=== PATIENT | female | born 1940 | race Caucasian/White ===

== ENCOUNTER 2022-04-18 17:35 | Outpatient (CLI) | payer MEDICARE, BC, SELFPAY ==
--- NOTE | ~2022-04-18 | XR_ITS ---
XR chest 2V DATE: 04/18/2022 17:55 INDICATION: History of spots on lungs TECHNIQUE: PA and lateral views COMPARISON: 07/17/2017 two-view chest FINDINGS: There is interval asymmetric increased density in the right apical area compared to the lef t. CT thorax examination is recommended. The lungs are moderately hyperinflated evidence of old pulmonary granulomatous disease. No active infiltrate or consolidation, pleural effusion or pulmonary vascular congestion or pneumotho rax is detected. Normal heart size. No hilar or mediastinal enlargement. Moderate elevation of the right diaphragm, mildly increased since 07/17/2017. Thoracic and lumbar scoliosis and degenerative change. IMPRESSION: Asymmetric increased density in the right apical area since 07/17/2017; CT thorax examinati on is recommended for further evaluation Old pulmonary granulomatous disease Osteopenia Scoliosis and degenerative change of the thoracic and lumbar spine Reviewed, dictated and finalized at location B. [employer] CONTR[employer] REPRESENTATIVE IMPRESSION: Asymmetric increased density in the right apical area since 8; CT thorax examination is recommended for further evaluation Old pulmonary granulomatous disease Osteopenia Scoliosis and degenerative change of the thoracic and lumbar spine
== END 2022-04-18 17:36 | disposition home or self-care (01) ==
LOC: ANHIMG 17:41
DX: N13.30 Unspecified hydronephrosis (principal); J47.9 Bronchiectasis, uncomplicated; M85.88 Other specified disorders of bone density and structure, other site; M41.9 Scoliosis, unspecified
CPT/HCPCS: 71046

== ENCOUNTER 2022-10-23 00:59 | Inpatient (IN) | payer MEDICARE, BC, SELFPAY ==
[2022-10-23] VITALS (25 sets, daily range): BP systolic 114–217; BP diastolic 44–61; PULSE 37–83; RESP 12–27; TEMP 36–36.9; O2SAT 93–100; BMI 18.1
--- NOTE | ~2022-10-23 | XR_ITS ---
XR chest 1V portable 10/23/2022 03:14 Indication: Weakness. Dyspnea. Procedure: AP portable chest Comparison: Comparison to multiple prior studies sequentially, with oldest reviewed study dated 06/11. Findings: Heart size normal. Diffuse bilateral interstitial infiltrates have developed, compatible wi th edema. No pleural effusion or pneumothorax. No acute osseous abnormality. Impression: 1: Mild interstitial edema. Reviewed, dictated and finalized at location A. Impression: 1: Mild interstitial edema.
--- NOTE | ~2022-10-23 | XR_ITS ---
EXAMINATION: XR chest 1V portable INDICATION: Pacemaker insertion TECHNIQUE: Portable AP chest at 1149 hours COMPARISON: 10/23/2022 FINDINGS: An electronic device projects over the left heart. There is a small left pleural effusion. There is no pneumothorax. A mild diffuse interstitial pattern persists without significant change. Th e cardiomediastinal silhouette is stable. IMPRESSION: 1. Electronic device projecting over the left heart. 2. Mild pulmonary edema without significant change. Reviewed, dictated and finalized at location A.
--- NOTE | ~2022-10-23 | XR_ITS ---
EXAMINATION: XR chest 2V DATE: 10/25/2022 11:44 INDICATION: Pacemaker insertion TECHNIQUE: AP and lateral views of the chest are obtained. COMPARISON: 10/24/2022 FINDINGS: A mild diffuse interstitial pattern persists but has improved. An electronic device project s over the left heart. There is a small left pleural effusion. No pneumothorax is identified. The car diomediastinal silhouette is stable. There is moderate thoracic spondylosis. IMPRESSION: 1. Mild pulmonary edema with interval improvement. 2. Small left pleural effusion. Reviewed, dictated and finalized at location A.
--- NOTE | 2022-10-23 01:22 | ECG_ITS ---
Measurements Intervals [place] Rate: 121 P: ID: 0 QRS: 105 QRSD: 139 T: 0 QT: 284 QTc: 404 Interpretive Statements COMPLETE HEART BLOCK INTRAVENTRICULAR CONDUCTION DELAY [130+ ms QRS DURATION] NONSPECIFIC ST AND t-WAVE ABNORMALITY NO PREVIOUS ECG AVAILABLE FOR COMPARISON Electronically Signed On 10-23-2022 8:40:59 CDT by Vonda Ritter M.D.
[2022-10-23 02:12] LABS: Basophils Percent Auto 0.5 % (0.2-1.2); Eosinophils Absolute Auto 0.1 K/mm3 (0-0.3); Eosinophils Percent Auto 0.9 % (0-4.4); Hematocrit 34.1 % (37.0-47.0); Hemoglobin 11.1 g/dL (12.0-15.0); Immature Granulocyte Absolute 0.03 K/mm3 (0.00-0.031); Immature Granulocyte Percent A 0.4 % (0-0.5); Lymphocytes Absolute Auto 0.97 K/mm3 (0.9-3.2); Lymphocytes Percent Auto 11.4 % (18.3-44.2); Mean Corpuscular HGB Conc 32.6 g/dl (32-36); Monocytes Absolute Auto 1.1 K/mm3 (0.1-0.6); Monocytes Percent Auto 12.3 % (2.6-8.5); Neutrophils Absolute Auto 6.4 K/mm3 (1.3-6.7); Neutrophils Percent Auto 74.5 % (45.5-73.1); Platelet Count Result 309 k/mm3 (150-375); Red Blood Count 3.83 M/mm3 (4.2-5.4); Red Cell Distribution Width 13.5 % (11.5-14.5); White Blood Count 8.5 K/mm3 (4.5-10.0)
[2022-10-23 02:18] LABS: Appearance Urine Clear (Clear); Bacteria Urine None Seen /hpf; Bilirubin Urine Negative (Negative); Blood Urine Negative (Negative); Color Urine Dark Yellow (Yellow); Glucose Urine UA Negative (Negative); Ketones Urine Trace mg/dL (Negative); Leukocyte Esterase Ur Negative LEU/UL (Negative); Nitrate Urine Negative (Negative); Protein Urine 2+ mg/dL (Negative); Specific Grav Ur 1.021 (1.001-1.035); Squamous Epithelial Cell Urine None seen /hpf (Few); WBC Urine 0-5 /hpf
[2022-10-23 02:29] LABS: Alanine Aminotransferase 39 U/L (6-35); Albumin Level 3.9 g/dL (3.5-5.1); Alkaline Phosphatase 106 U/L (38-126); Anion Gap 8 mmol/L (8-16); Aspartate Amino Transferase 45 U/L (14-36); Bilirubin,Total 0.5 mg/dL (0.2-1.3); Blood Urea Nitrogen 33 mg/dL (7-17); Calcium 8.3 mg/dL (8.4-10.2); Carbon Dioxide 19 mmol/L (22-30); Chloride 102 mmol/L (98-107); Estimated Glomerular Filt Rate 33; Glucose 116 mg/dL (65-110); Magnesium 2.7 mg/dL (1.6-2.3); Potassium 4.5 mmol/L (3.4-5.0); Sodium 129 mmol/L (137-145)
[2022-10-23 02:30] LABS: Prothrombin Time 13.9 Seconds (11.1-14.7)
[2022-10-23 02:31] LABS: Lactic Acid Reflex 1.6 mmol/L (0.7-2.0); Partial Thromboplastin Time 37.6 SECONDS (22.3-36.8)
[2022-10-23 02:41] LABS: NT Pro B Type Natriuretic Pept 26600 pg/mL (19.9-100); Troponin I 0.023 ng/mL (0.000-0.034)
--- NOTE | 2022-10-23 02:53 | ED.GENADULT ---
HPI - General Adult General Chief complaint: Unspecified Stated complaint: sob Time Seen by Provider: 10/23/22 01:24 History of Present Illness HPI narrative: Patient is a 82-year-old female who presents emergency department with chief complaint of generalized weakness. Patient reports for the last 4 days she has been feeling weak and has noticed that her blood pressure has been running on the high side. Patient states she has not had really any significant chest pain reports no syncope but states she just feels exhausted. Patient decided to come into the emergency department tonight after the symptoms were not improving. Patient reports no prior history of cardiac disease does report that she has prior history of hypertension Related Data Home Medications Medication Instructions Recorded Confirmed aspirin 81 mg tablet,delayed 81 mg PO DAILY 03/18/19 03/18/19 release (Aspir-) azithromycin 250 mg tablet 03/18/19 hydralazine 25 mg tablet 25 mg PO TID 03/18/19 03/18/19 lorazepam 0.5 mg tablet 0.5 mg PO DAILY PRN Anxiety 03/18/19 03/18/19 metoprolol tartrate 100 mg tablet 100 mg PO Q12H 03/18/19 03/18/19 Allergies Allergy/AdvReac Type Severity Reaction Status Date / Time cefuroxime Allergy Mild Unknown Verified 10/23/22 01:16 amoxicillin Allergy Unknown Other Verified 10/23/22 01:16 cefdinir Allergy Unknown Other Verified 10/23/22 01:16 levofloxacin Allergy Unknown Other Verified 10/23/22 01:16 AMOXICILLIN TRIHYDRATE Allergy Unknown ?ITCHING Uncoded 10/23/22 01:16 FEET, ACHY BONES POTASSIUM CLAVULANATE Allergy Unknown ?ITCHING Uncoded 10/23/22 01:16 FEET, ACHY BONES Review of Systems Review of Systems: A 10 system review of systems was completed on the patient and is negative except for what is stated in the HPI. Nursing and ancillary documentation was reviewed. [facility] Family History Family History Father Family history of lung cancer Other Malignant neoplasm of prostate Social History Social History Smoking status: Never smoker Alcohol intake: never Exam Narrative: GENERAL: Well-appearing, well-nourished, and in no acute distress. HEAD: Normocephalic, atraumatic. EYES: PERRLA and EOMI. ENT: Nares clear, no rhinorrhea or epistaxis. Mucous membranes moist. NECK: Supple. CHEST: Clear to auscultation. No respiratory distress. HEART: Regular rate and rhythm. No murmur heard. Normal peripheral pulses. ABDOMEN: Soft, nontender, nondistended, normal active bowel sounds. EXTREMITIES: Normal range of motion. No edema. SKIN: Warm, dry, no rash. NEURO: No focal deficits. Alert and oriented x3. PSYCH: Normal mood and affect. Course Vital Signs Vital signs: Vital Signs Temperature 36.0 C L 10/23/22 01:04 Pulse Rate 42 L 10/23/22 01:04 Respiratory Rate 12 10/23/22 01:04 Blood Pressure 217/60 H 10/23/22 01:04 Pulse Oximetry 97 10/23/22 01:04 Oxygen Delivery Room Air 10/23/22 01:04 Temperature 36.0 C L 10/23/22 01:04 Pulse Rate 83 10/23/22 02:25 Respiratory Rate 20 10/23/22 01:29 Blood Pressure 213/59 H 10/23/22 01:29 Pulse Oximetry 100 10/23/22 01:29 Oxygen Delivery Room Air 10/23/22 01:04 Medical Decision Making MDM Narrative Medical decision making narrative: Differential diagnosis includes dysrhythmia, ACS, electrolyte abnormality, acute renal failure EKG shows third-degree heart block without ST elevation or ST depression Laboratory studies were obtained and the patient which showed a normal CBC with a white count of 8.5 hemoglobin 11.1 electrolytes showed a sodium of 129 potassium of 4.5 BUN of 33 and a creatinine 1.5 lactic acid was 1.6 magnesium was 2.7 liver enzymes were slightly elevated with an AST of 45 and ALT at 39 troponin is 0.023 Vital Signs Vital Signs: Vital Signs Temperatu
[2022-10-23 03:02] LABS: Add Urine Microscopic? YES
--- NOTE | 2022-10-23 04:25 | ADMGEN ---
This patient, Sulma Freitas, was admitted to Intensive Care Unit-3. Patient/family oriented to hospital policies and general routines including ID bracelet, bed and alarms, visiting hours, pain management, procedures, bathroom and other care routines, personal items, smoking policy, room service/diet, and visiting hours. Information on how to activate the Rapid Response Team has been discussed. Patient/Family are encouraged to report perceived risks to care and to ask questions if they do not understand what they are told or what they should do.
[2022-10-23 06:10] LABS: Troponin I 0.029 ng/mL (0.000-0.034)
--- NOTE | 2022-10-23 06:23 | PM.IMHP ---
H&P: HPI History of Present Illness Date/Time: 10/23/22 06:23 Chief Complaint: Shortness of breath and weakness Narrative: 82-year-old female with a past medical history of bronchiectasis, essential hypertension and depression who presented to the ER with shortness of breath and generalized weakness. The patient reports that she has been feeling overall weak for the last 4 days. She did not feel well so was checking her vitals at home. She knows that her blood pressure was running on the higher side. When she arrived to the ER her blood pressures were in the 190s to 200 systolic. Then just after midnight today she began having increased shortness of breath from baseline. She always has some shortness of breath due to history of bronchiectasis per symptoms are well controlled by using albuterol nebulizer twice a day. She has not been having any significant cough from baseline. She denies any chest pain or palpitations. She denies any lightheadedness or syncope. She has not had any recent changes in her medications. She has not had any nausea or vomiting. She does have some chronic urinary frequency but no increased urgency or dysuria. However on the day of presentation to the ER she had actually not had much urine output. When they placed a catheter in the ER the patient had produced 300 mL of urine. She had had decreased oral intake over last couple of days due to her profound weakness. She correa been having normal bowel movements without hematochezia or melena. She ambulates without assistance in his independent activities of daily living. The patient's give me permission to discuss her medical care with her daughter who is also at bedside. They both provided information with the patient providing the majority of the information. The daughter states the patient is a DNR/DNI and would not want to have aggressive intervention if she were to have cardiac arrest but in the setting of the heart block and need for probable pacemaker insertion they are willing to have the patient full code for such a procedure. Review of Systems Review of Systems: 12 systems were reviewed with pertinent positives and negatives per HPI. Except as documented in the HPI, all other systems were reviewed and are negative. 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) TIA (transient ischemic attack) Surgical History Surgical History (Updated 10/23/22 @ 06:37 by Claire Umana DO) History of lumpectomy of left breast Benign pathology History of myringotomy History of sinus surgery Status post cataract extraction of both eyes with insertion of intraocular lens Family History Family History (Updated 10/23/22 @ 06:39 by Claire Umana DO) Father Lung cancer Mother Blindness Sibling Malignant neoplasm of prostate Social History Social History (Updated 10/23/22 @ 07:05 by Claire Umana DO) Social History: Code status: DNR/DNI Healthcare power of disability attorney: Smoking status: Never smoker Alcohol intake: never Lack of Transportation: No Lack of Food: Never True Current Housing: I Have Housing Concerned About Future Housing: No Difficulty Paying Gas/Electric Bills: No Difficulty Paying for Meds: No Currently Unemployed: No Education: Decline to Answer Difficulty w/ Childcare or Family Care: No Living arrangements: with family Additional living arrangements comments: She lives with her of 60 years. Her daughter is at bedside. 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 Spiritual care concerns: No Meds Home Medications and Allergies Jac
[2022-10-23] MEDS: hydrALAZINE HCL 20 MG/ML VIAL 10 MG IV PUSH (06:54)
--- NOTE | 2022-10-23 08:27 | WPDCNINT ---
Assessment and Plan Assessment and plan (1) Third degree heart block: Code(s): I44.2 - Atrioventricular block, complete Status: Acute Assessment and Plan: Patient presented with 3-4 days of generalized weakness, shortness of breath, hypertension. In the ER was noted to be in High-degree AV dissociation/complete heart block. Hemodynamically stable -patient admitted to the ICU for close monitor -appreciate cardiology evaluation and recommendation, -patient with likely require permanent pacemaker -given patient is hemodynamic stable anti cardiology fluids as she does not require a temporary pacemaker at this time (2) Uncontrolled hypertension: Code(s): I10 - Essential (primary) hypertension Status: Acute Assessment and Plan: Continue hydralazine scheduled and p.r.n. (3) Bronchiectasis: Code(s): J47.9 - Bronchiectasis, uncomplicated Status: Acute Assessment and Plan: History of bronchiectasis, continue albuterol nebulizer Plan DVT prophylaxis: SCDs Stress ulcer prophylaxis: Not indicated Nutrition: Heart healthy diet Code Status: Full code for now Critical Care Time Spent: 47 minutes Due to a high probability of clinically significant, life threatening deterioration, the patient required my highest level of preparedness to intervene emergently and I personally spent this critical care time directly and personally managing the patient. This critical care time included obtaining a history; examining the patient; pulse oximetry; ordering and review of studies; arranging urgent treatment with development of a management plan; evaluation of patient's response to treatment; frequent reassessment; and discussions with other providers. It was exclusive of separately billable procedures and treating other patients and teaching time. Please see Assessment and Plan section and the rest of the note for further information on patient assessment and treatment This dictation may have been done utilizing a voice recognition system. Attempts have been made to correct errors. However, there may be uncorrected grammatical, spelling, and recognitions errors present. Nurse Navigator Consult Note Consult date: 10/23/22 Reason for consult: Shortness of breath, generalized weakness, hypertension, complete AV dissociation/complete blood HPI: Sulma Freitas is a 82 year old female with past medical history of bronchiectasis, essential hypertension, history of SIADH, TIA, hyponatremia, anxiety and depression presented the ED on 10/24/2019 with complains of shortness of breath, generalized weakness which has been going on for the last 4 days prior to admission. She also noted that that her blood pressures were running on the higher side. She has always had some shortness of breath at baseline due to her bronchiectasis but his shortness of breath has been worsening since the last few days and she has been having to use her in albuterol nebulizer 2 times daily. She denies any cough, fevers, chest pain or palpitations. She did not complain of any lightheadedness was syncopal episodes. Denies any nausea vomiting. Denies any alcohol, tobacco illicit drug use. In the ER patient was found to be hypertensive with systolic blood pressures in the 190s to 200s. Patient was bradycardic with complete AV dissociation/complete heart block. Due to her severe generalized weakness and just not feeling well overall her p.o. intake has also decreased over the last few days. Patient was started on hydralazine for blood pressures and transferred to the ICU for further management. 10/23/2022 chest x-ray on admission shows mild interstitial edema Patient seen and examined the ICU this morning, denies any chest pain, shortness of breath, abdominal pain, nausea, vomiting. States she has not slept well overnight and is tired. Patient is hyponatremic, with acute [place] [id number]. Patient states that she has had de
--- NOTE | 2022-10-23 08:45 | PM.CNCAR ---
Assessment and Plan Assessment and plan (1) Third degree heart block: Code(s): I44.2 - Atrioventricular block, complete Status: Acute Assessment and Plan: Pt presents complete heart block and bradycardia, due to aging conduction system; not on any beta-blockers etc.. Complete heart block is a life-threatening diseae with a high risk of morbidity and mortality. Fortunately, so far, her heart rhythm though very bradycardic appears fairly stable, underlying fairly narrow complex RBBB. No pauses. I think patient will not need a temporary pacemaker or other acute intervention today. If she deteriorates, then we can place a temporary transvenous pacemaker. Discussed and counseled patient and family; recommend pacemaker implant. Because of her slight stature, she has a higher risk of complications with a traditional dual chamber pacemaker and may be a candidate for a leadless device. --echocardiogram --pacemaker implant tomorrow (2) Acute diastolic CHF (congestive heart failure): Code(s): I50.31 - Acute diastolic (congestive) heart failure Status: Acute Assessment and Plan: Has acute diastolic chf, probably due to poor cardiac output. Not requring O2. Likely will improve w/ an improved cardiac output. --Check Echo (3) OSMAR (acute kidney injury): Code(s): N17.9 - Acute kidney failure, unspecified Status: Acute Assessment and Plan: OSMAR prob 2nd to poor cardiac output. Likely will improve. History of Present Illness History of Present Illness Consult date/time: 10/23/22 08:45 Reason For Visit: Third Degree Heart Block/Generalized Weakness Narrative: Sulma Freitas is an 82-year-old female whom I was asked to see at the request of Dr. mAe Vinson for my advice and opinion regarding her complete heart block and bradycardia, in consultation. She has a history of hypertension and hyponatremia. The patient has not been feeling well for the last few days with shortness of breath, poor appetite, and generalized weakness. Blood pressure has been running high. SShe thought her shortness of breath was due to her bronchiectasis and was using her nebulizers. In the emergency room she was found to a have a heart rate of 37-42 ppm and be in complete heart block. She also may be in mild failure heart failure. She was admitted to the ICU, and been stable overnight with a heart rate running 38-42 BPM. She has no cardiac history and is not on any beta-blockers or calcium channel blockers. An echo done in 2017 showed an ejection fraction 72% with diastolic dysfunction. Creatinine in September 2021 was 0.5. PRior to this illness, the pt was limited by neuropathy such that she doesn't get out much and is somewhat sedentary. No need for walker or cane. No CP, prior BISHOP, or edema. Review of Systems Constitutional: Constitutional: Reports fatigue, Denies fever(s), Reports lethargy and Reports weakness Comments: Got to the ICU late, didn't sleep well, sleepy today Eyes: Eyes: Reports no additional eye complaints ENT: Denies epistaxis Cardiovascular: Cardiovascular: Denies chest pain, Denies pedal edema, Denies lightheadedness and Reports dyspnea Respiratory: Respiratory: Denies chest congestion, Reports dyspnea and Reports dyspnea on exertion Gastrointestinal: Gastrointestinal: Denies abdominal pain and Denies hematochezia Comments: anorexia Genitourinary: Genitourinary: Denies hematuria Musculoskeletal: Musculoskeletal: Reports no additional musculoskeletal complaints Integumentary/Breasts: Skin/Breast: Reports system reviewed and no additional complaints, except as docu Neurologic: Reports system reviewed and no additional complaints, except as documented and Denies behavioral changes Comments: Has neuropathy w/ pain and numbess of feet. Psychiatric: Psychiatric: Denies behavioral changes [facility] Past Medical History Medical History (Updated 10/23/22 @ 09:27 b
[2022-10-23] MEDS: hydrALAZINE HCL 50 MG TABLET PO ×2 (08:57→13:13)
[2022-10-23] MEDS: ASPIRIN 81 MG ENTERIC TABLET PO (08:57)
[2022-10-23] MEDS: ALBUTEROL SULFATE NEB 2.5 MG/3 ML INH INHALATION ×2 (09:43→19:03)
[2022-10-23 10:03] LABS: Troponin I 0.033 ng/mL (0.000-0.034)
[2022-10-23] MEDS: ACETAMINOPHEN 325 MG TABLET 650 MG PO (13:20)
--- NOTE | 2022-10-23 17:58 | WPDPN ---
Progress Note: A&P Assessment and Plan (1) Third degree heart block: Code(s): I44.2 - Atrioventricular block, complete Status: Acute (2) Uncontrolled hypertension: Code(s): I10 - Essential (primary) hypertension Status: Acute Plan Patient has new onset third-degree heart block likely causing her symptoms of profound weakness. The patient also has a concomitant elevated blood pressure I think this is compensatory to count about her profound bradycardia. Cardiology has been consulted. The patient does have an elevated creatinine. It is unclear if this is acute kidney injury due to hypoperfusion versus just developing chronic kidney disease as patient's prior labs were from 2018. Chest x-ray also does demonstrates of possible pulmonary edema versus some of her chronic changes from a bronchiectasis. Again likely due to heart failure due to her bradycardia. The patient is not requiring any supplemental oxygen. The patient has been admitted as he ICU and has external pacers in place. Patient is not on any medications that could cause bradycardia. Will order echocardiogram to further evaluate patient's cardiac structure and function. Cardiology has been consulted. Patient would provide benefit from a temporary pacemaker to help with her symptoms. Will await further recommendations from Cardiology. Stock Fitter has been consulted. 40 minute spent critical care activities Due to a high probability of clinically significant, life threatening deterioration, the patient required my highest level of preparedness to intervene emergently and I personally spent this critical care time directly and personally managing the patient. This critical care time included obtaining a history; examining the patient; pulse oximetry; ordering and review of studies; arranging urgent treatment with development of a management plan; evaluation of patient's response to treatment; frequent reassessment; and discussions with other providers. It was exclusive of separately billable procedures and treating other patients and teaching time. Please see Assessment and Plan section and the rest of the note for further information on patient assessment and treatment. 09/22/2022 interval history: 82-year-old female presented emergency department with complaint of shortness of breath is found to have third-degree heart block, patient is seen by Cardiology patient remains clinically stable and recommended patient does not need temporary pacemaker however patient will have permanent pacemaker tomorrow, unfortunately patient is quite some unable to provide any review of symptom, her daughter and her is present in the go and answered all the questions Subjective Date/time seen: 10/23/22 17:58 Interval history: Shortness of breath and weakness HPI-Narrative: 82-year-old female with a past medical history of bronchiectasis, essential hypertension and depression who presented to the ER with shortness of breath and generalized weakness.? The patient reports that she has been feeling overall weak for the last 4 days.? She did not feel well so was checking her vitals at home.? She knows that her blood pressure was running on the higher side.? When she arrived to the ER her blood pressures were in the 190s to 200 systolic.? Then just after midnight today she began having increased shortness of breath from baseline.? She always has some shortness of breath due to history of bronchiectasis per symptoms are well controlled by using albuterol nebulizer twice a day.? She has not been having any significant cough from baseline.? She denies any chest pain or palpitations.? She denies any lightheadedness or syncope.? She has not had any recent changes in her medications.? She has not had any nausea or vomiting.? She does have some chronic urinary frequency but no increased urgency or dysuria.? However on the day of presentation to the ER she had actually not had much urine
[2022-10-24] VITALS (25 sets, daily range): BP systolic 131–194; BP diastolic 42–88; PULSE 42–92; RESP 16–26; TEMP 36.8–36.9; O2SAT 93–97; BMI 18.3
--- NOTE | 2022-10-24 | ECHO_ITS ---
Patient Info Name: Sulma Freitas Age: 82 years : 1940 Gender: Female Ht: 50 in Wt: 89 lbs BSA: 1.21 m2 HR: 42 bpm BP: 160 / 42 mmHg Heart Rhythm: Third degree heart block Technical Quality: Fair Exam Date: 10/24/2022 8:14 AM Exam Location: [facility] Pulmonary Patient Status: Inpatient Admit Date: 10/23/2022 Staff Ordering Physician: Claire Umana DO No Bake Molder: Tahmina Pandya RDCS Attending Provider: Claire Umana DO Referring Physician: Lyndsay NGO; Exam Type: CA echo doppler color flow Study Info Indications - Third degree heart block Complete two-dimensional, color flow and Doppler transthoracic echocardiogram is performed. Summary 1. Complete two-dimensional, color flow and Doppler transthoracic echocardiogram is performed. 2. Normal left ventricular size and vigorous systolic contractility no regional wall motion abnormalities. 3. Moderately enlarged left atrium. 4. Mildly sclerotic but not stenotic aortic valve. 5. Trivial MR. Left Ventricle Left ventricular chamber dimension is normal. Left ventricular systolic function is normal, estimated at 65-70%. The left ventricular diastolic function is indeterminate. Right Ventricle Right ventricular chamber dimension is normal. Left Atria Left atrial chamber dimension is moderately enlarged. Right Atria Right atrial chamber dimension is normal. Aortic Valve The aortic valve is trileaflet. There is mild aortic valve sclerosis. Pulmonic Valve The pulmonic valve is not well visualized. Mitral Valve The mitral valve has normal leaflets. There is trace mitral valve regurgitation. Tricuspid Valve The tricuspid valve leaflets are normal. Pericardium/Pleural The pericardium appears normal. Aorta The prox ascending aorta size is normal. Left Ventricular Outflow Tract Name Value Normal LVOT 2D LVOT Diameter 1.9 cm LVOT Doppler LVOT Peak Gradient 8 mmHg LVOT Mean Gradient 3 mmHg LVOT VTI 26 cm LVOT VTI/AV VTI Ratio 0.6 LVOT Stroke Volume 73 ml LVOT CO 3.4 l/min LVOT CI 2.8 l/min/m2 Pulmonic Valve Name Value Normal RVOT Doppler RVOT Peak Gradient 2 mmHg PV Doppler PV Peak Gradient 5 mmHg Mitral Valve Name Value Normal MV Doppler MV Peak Gradient 18 mmHg MV Mean Gradient 5 mmHg MV Decel Stoddard 922 cm/s2
[2022-10-24] MEDS: hydrALAZINE HCL 20 MG/ML VIAL 10 MG IV PUSH ×2 (04:16→20:11)
[2022-10-24 04:31] LABS: Basophils Percent Auto 0.4 % (0.2-1.2); Eosinophils Absolute Auto 0.1 K/mm3 (0-0.3); Eosinophils Percent Auto 1.2 % (0-4.4); Hematocrit 31.9 % (37.0-47.0); Hemoglobin 10.3 g/dL (12.0-15.0); Immature Granulocyte Absolute 0.03 K/mm3 (0.00-0.031); Immature Granulocyte Percent A 0.4 % (0-0.5); Lymphocytes Absolute Auto 0.72 K/mm3 (0.9-3.2); Lymphocytes Percent Auto 10.7 % (18.3-44.2); Mean Corpuscular HGB Conc 32.3 g/dl (32-36); Mean Corpuscular Hemoglobin 28.9 pg (26-34); Mean Corpuscular Volume 89.6 fl (80-100); Mean Platelet Volume 10.6 fl (7.4-10.4); Monocytes Absolute Auto 0.9 K/mm3 (0.1-0.6); Monocytes Percent Auto 13.2 % (2.6-8.5); Neutrophils Percent Auto 74.1 % (45.5-73.1); Platelet Count Result 229 k/mm3 (150-375); Red Blood Count 3.56 M/mm3 (4.2-5.4); Red Cell Distribution Width 13.6 % (11.5-14.5); White Blood Count 6.8 K/mm3 (4.5-10.0)
[2022-10-24 04:40] LABS: Alanine Aminotransferase 32 U/L (6-35); Albumin Level 3.5 g/dL (3.5-5.1); Alkaline Phosphatase 94 U/L (38-126); Anion Gap 8 mmol/L (8-16); Aspartate Amino Transferase 32 U/L (14-36); Bilirubin,Total 0.6 mg/dL (0.2-1.3); Blood Urea Nitrogen 25 mg/dL (7-17); Calcium 7.9 mg/dL (8.4-10.2); Carbon Dioxide 20 mmol/L (22-30); Chloride 102 mmol/L (98-107); Estimated Glomerular Filt Rate 43; Glucose 97 mg/dL (65-110); Magnesium 2.6 mg/dL (1.6-2.3); Phosphorus 3.5 mg/dL (2.5-4.5); Potassium 4.6 mmol/L (3.4-5.0); Sodium 130 mmol/L (137-145)
[2022-10-24 04:43] LABS: INR 1.1; Prothrombin Time 14.3 Seconds (11.1-14.7)
[2022-10-24 04:44] LABS: Partial Thromboplastin Time 37.6 SECONDS (22.3-36.8)
[2022-10-24] MEDS: ALBUTEROL SULFATE NEB 2.5 MG/3 ML INH INHALATION ×2 (07:07→20:40)
--- NOTE | 2022-10-24 07:41 | WPDMODSED ---
Moderate Sedation Note-Pt Data Patient Data Diagnosis: Acquired complete heart block Present Complaint: generalized fatigue and weakness Procedure to be performed/Plan: pacemaker implantation Allergies Allergy/AdvReac Type Severity Reaction Status Date / Time cefuroxime Allergy Mild Unknown Verified 10/23/22 01:16 amoxicillin Allergy Unknown Other Verified 10/23/22 01:16 cefdinir Allergy Unknown Other Verified 10/23/22 01:16 levofloxacin Allergy Unknown Other Verified 10/23/22 01:16 AMOXICILLIN TRIHYDRATE Allergy Unknown ?ITCHING Uncoded 10/23/22 01:16 FEET, ACHY BONES POTASSIUM CLAVULANATE Allergy Unknown ?ITCHING Uncoded 10/23/22 01:16 FEET, ACHY BONES Home Medications Medication Instructions Recorded Confirmed Type aspirin 81 mg tablet,delayed 81 mg PO DAILY 03/18/19 10/23/22 History release (Aspir-) hydralazine 25 mg tablet 50 mg PO TID 03/18/19 10/23/22 History albuterol sulfate 2.5 mg/3 mL 2.5 mg inhalation BID 10/23/22 10/23/22 History (0.083 %) solution for nebulization Current Medications: Active Medications Acetaminophen (Acetaminophen 325 Mg Tablet) 650 mg PO Q6H PRN PRN Reason: Mild Pain (1-3) or Fever Last Admin: 10/23/22 13:20 Dose: 650 mg Albuterol (Albuterol Sulfate Neb 2.5 Mg/3 Ml Inh) 2.5 mg INHALATION Q12HRT [facility] Last Admin: 10/24/22 07:07 Dose: 2.5 mg Aspirin (Aspirin 81 Mg Enteric Tablet) 81 mg PO DAILY [facility] Last Admin: 10/23/22 08:57 Dose: 81 mg Hydralazine HCl (Hydralazine Hcl 50 Mg Tablet) 50 mg PO TID [facility] Last Admin: 10/23/22 16:41 Dose: Not Given Hydralazine HCl (Hydralazine Hcl 20 Mg/Ml Vial) 10 mg IV PUSH Q4H PRN PRN Reason: SBP greater than 170 Last Admin: 10/24/22 04:16 Dose: 10 mg Perflutren Lipid Microsphere (Perflutren Lipid Microspheres 1.5 Ml Vial Diluted To 10 Ml Total Volume) 0 ml IV PUSH ONCE PRN; Protocol PRN Reason: adequate visualization Stop: 10/25/22 07:13 Sedation/Anesthesia: No previous sedation/anesthesia problems (including family history). [facility] Past Medical History Medical History (Updated 10/23/22 @ 09:27 by Vonda Ritter MD) Anxiety and depression Bronchiectasis with acute exacerbation Essential hypertension H/O: stroke Small stroke about 2002; full recovery Hyponatremia Moderate episode of recurrent major depressive disorder Neuropathy SIADH (syndrome of inappropriate ADH production) TIA (transient ischemic attack) Surgical History Surgical History (Updated 10/23/22 @ 06:37 by Claire Umana DO) History of lumpectomy of left breast Benign pathology History of myringotomy History of sinus surgery Status post cataract extraction of both eyes with insertion of intraocular lens Family History Family History (Updated 10/23/22 @ 06:39 by Claire Umana DO) Father Lung cancer Mother Blindness Sibling Malignant neoplasm of prostate Social History Social History (Updated 10/23/22 @ 09:25 by Vonda Ritter MD) Social History: , has at least one child (daughter) Code status: DNR/DNI (suspended during hospitalization 10/23/2022) Healthcare power of securities attorney: Smoking status: Never smoker Alcohol intake: never Lack of Transportation: No Lack of Food: Never True Current Housing: I Have Housing Concerned About Future Housing: No Difficulty Paying Gas/Electric Bills: No Difficulty Paying for Meds: No Currently Unemployed: No Education: Decline to Answer Difficulty w/ Childcare or Family Care: No Living arrangements: with family Additional living arrangements comments: She lives with her of 60 years. Her daughter is at bedside. 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 Spiritual care concerns: No Mod Sed Physical Exam Physical Exam Pre Procedural Exam: Normal: Neck, Throat, Airway, Lungs, Heart Size, Neuro Exam a
[2022-10-24] MEDS: ASPIRIN 81 MG ENTERIC TABLET PO (08:33)
[2022-10-24] MEDS: hydrALAZINE HCL 50 MG TABLET PO ×3 (08:33→16:55)
--- NOTE | 2022-10-24 08:58 | WPDINTPN ---
Progress Note: A&P Assessment and Plan (1) Third degree heart block: Code(s): I44.2 - Atrioventricular block, complete Status: Acute Assessment and Plan: Patient presented with 3-4 days of generalized weakness, shortness of breath, hypertension. In the ER was noted to be in High-degree AV dissociation/complete heart block. Hemodynamically stable -patient was admitted to the ICU for close monitor -patient is going for a pacemaker placement this morning (2) Uncontrolled hypertension: Code(s): I10 - Essential (primary) hypertension Status: Acute Assessment and Plan: Continue hydralazine scheduled and p.r.n. (3) Bronchiectasis: Code(s): J47.9 - Bronchiectasis, uncomplicated Status: Acute Assessment and Plan: History of bronchiectasis, continue albuterol nebulizer Plan DVT prophylaxis: SCDs Stress ulcer prophylaxis: Not indicated Nutrition: NPO Code Status: Full code for now Critical Care Time Spent: 30 minutes Due to a high probability of clinically significant, life threatening deterioration, the patient required my highest level of preparedness to intervene emergently and I personally spent this critical care time directly and personally managing the patient. This critical care time included obtaining a history; examining the patient; pulse oximetry; ordering and review of studies; arranging urgent treatment with development of a management plan; evaluation of patient's response to treatment; frequent reassessment; and discussions with other providers. It was exclusive of separately billable procedures and treating other patients and teaching time. Please see Assessment and Plan section and the rest of the note for further information on patient assessment and treatment This dictation may have been done utilizing a voice recognition system. Attempts have been made to correct errors. However, there may be uncorrected grammatical, spelling, and recognitions errors present. Subjective Date/time seen: 10/24/22 Overnight events reviewed. Afebrile Continues to be complete heart block with heart rate in high 40s to low 50s Blood pressure elevated Patient denies any complaints and feels good. Patient denies dizziness lightheadedness blurred vision fever, chest pain, shortness of breath, cough, nausea vomiting, abdominal pain,, diarrhea, headache or constipation. All other systems were reviewed and were negative On room air and other vitals acceptable Review of Systems Review of Systems: All systems reviewed & are unremarkable except as noted in HPI and below Exam Narrative: General: Pleasant female in no acute distress HEENT:? Pupils equal and reactive, Neck:? Supple Respiratory:? Coarse breath sounds bilaterally, decreased at bases, adequate air entry Cardiac:? Rhythm is irregular, bradycardia Abdomen:? Soft, nontender, nondistended, hypoactive bowel sounds Extremities:? Bilateral trace pitting edema, palpable pedal pulses Neuro:? Patient is awake, alert, oriented, nonfocal Skin:? Warm and dry Psych:? Depressed affect Objective Data Vital Signs Vital Signs: Vital Signs - 24 hr 10/23/22 09:43 10/23/22 09:44 10/23/22 09:54 Temperature Pulse Rate 40 L 43 L Respiratory Rate 21 H 20 Blood Pressure Pulse Oximetry 96 Oxygen Delivery Room Air 10/23/22 10:00 10/23/22 10:00 10/23/22 12:00 Temperature Pulse Rate 44 L 44 L 45 L Respiratory Rate 20 Blood Pressure 189/51 H Pulse Oximetry 97 Oxygen Delivery 10/23/22 12:00 10/23/22 12:00 10/23/22 14:00 Temperature 36.7 C Pulse Rate 46 L 44 L Respiratory Rate 20 Blood Pressure 165/54 H Pulse Oximetry 97 95 Oxygen Delivery Room Air 10/23/22 14:00 10/23/22 16:00 10/23/22 16:00 Temperature 36.9 C Pulse Rate 44 L 43 L Respiratory Rate 18 16 Blood Pressure 166/53 H 114/44 L Pulse Oximetry 97 97 96 Oxygen Delivery Room Air 10/23/22 16:00 10/23/22
--- NOTE | 2022-10-24 09:56 | P.PCNCC_ITS ---
Cardiac Cath Procedure Note Date of procedure:: 10/24/22 Performing physician:: Naldo Geller MD Indication:: Acquired complete heart block with symptomatic bradycardia Brief clinical history:: This is an 82-year-old woman without previous cardiovascular history who reports symptoms of generalized fatigue and lack of energy. In the emergency department she was found to be bradycardic with evidence of complete heart block. For this reason implantation of a permanent pacemaker device has been recommended. She is a frail lady with a BMI of 18 a leadless device is being implanted for this reason Procedure Procedure performed:: Implantation of permanent leadless Medtronic Micra AV pacemaker Sedation/Medication given:: Fentanyl 25 mg of Versed 2 mg Case start time 9:15 a.m. Case end time 9:40 a.m. Sedation provided by Delmy Mar RN, trained observer Access site:: Right femoral vein Estimated blood loss:: 25 cc Procedure note:: Patient was brought to the cardiac catheterization lab in the postabsorptive state the right femoral triangle was prepared and draped in the normal fashion. Anesthesia was given with 1% lidocaine infiltrated locally. Following this a the femoral vein was punctured using the modified Seldinger technique and a 6 Ethiopian vascular sheath was placed. Through the 6 Ethiopian sheath then a Super Sti ff guidewire was placed into the venous circulation through the right atrium up into the SVC. Following this the 6 Ethiopian sheath was removed and this was dilated to 18 Ethiopian and then the micro delivery sheath was inserted over the guidewire and under fluoroscopic visualization was advanced up to the right atrial level. The superstiff guidewire and the dilator were then removed. The micro delivery system was then prepared and flushed with saline to ensure that all of the air was out of the system. The system was then hooked to a continuous saline flush and the device was advanced into the delivery sheath into the right atrial position. The delivery sheath was then withdrawn into the IVC. Using the micro delivery catheter the device was negotiated across the tricuspid valve annulus into the right ventricle. In the JESSY projection a septal position was confirmed fluoroscopically and with saline contrast. In the AP projection then pressure was placed onto the device into the septum and the device was deployed into the septal position. The delivery catheter was then withdrawn into the right atrium and the device was tested using the analyzer. Appropriate threshold impedance and sensing were demonstrated. Following this the tethers were used to perform a tug test under cine angiographic visualization of the device. At least 2 tines were seen to be fixed. Following this the tether was cut and very carefully withdrawn from the device and removed from the catheter. The Micra device was then deployed and tested again using the analyzer. The delivery sheath was then removed and a [id number] stitch was made with 0 Ethibond over the puncture site. Manual pressure will be held for 20 minutes after which the patient will be taken to the holding area for recovery and then back to ICU room 3. Findings:: The patient received a Medtronic Micra AV device model [id number] serial number [id number] . The device is programmed in the DDD mode lower rate limit 60 upper rate limit 120. R-waves are sensed at 5.4 mV impedance 560 Ohms threshold 1.0 volt at 0.24 millisecond. Conclusion:: Successful uncomplicated implantation of Medtronic Micra AV leadless pacemaker system for treatment of symptomatic bradycardia with acquired complete heart block in this 82-year-old lady. Naldo Geller MD [facility]
--- NOTE | 2022-10-24 10:07 | ECG_ITS ---
Measurements Intervals [place] Rate: 86 P: VT: 0 QRS: -32 QRSD: 129 T: 124 QT: 391 QTc: 469 Interpretive Statements ELECTRONIC VENTRICULAR PACEMAKER NO FURTHER INTERPRETATION POSSIBLE COMPARED TO ECG 10/23/2022 01:28:51 NO SIGNIFICANT CHANGES Electronically Signed On 10-24-2022 17:07:52 CDT by Ryan Bradford M.D.
[2022-10-24] MEDS: SODIUM CHLORIDE 0.9% IV 1,000 ML 50 ML IV CONT (13:04)
[2022-10-24] MEDS: ACETAMINOPHEN 325 MG TABLET 650 MG PO ×2 (13:08→19:39)
--- NOTE | 2022-10-24 15:03 | WPDPN ---
Progress Note: A&P Assessment and Plan (1) Third degree heart block: Code(s): I44.2 - Atrioventricular block, complete Status: Acute (2) Uncontrolled hypertension: Code(s): I10 - Essential (primary) hypertension Status: Acute Plan Patient has new onset third-degree heart block likely causing her symptoms of profound weakness. The patient also has a concomitant elevated blood pressure I think this is compensatory to count about her profound bradycardia. Cardiology has been consulted. The patient does have an elevated creatinine. It is unclear if this is acute kidney injury due to hypoperfusion versus just developing chronic kidney disease as patient's prior labs were from 2018. Chest x-ray also does demonstrates of possible pulmonary edema versus some of her chronic changes from a bronchiectasis. Again likely due to heart failure due to her bradycardia. The patient is not requiring any supplemental oxygen. The patient has been admitted as he ICU and has external pacers in place. Patient is not on any medications that could cause bradycardia. Will order echocardiogram to further evaluate patient's cardiac structure and function. Cardiology has been consulted. Patient would provide benefit from a temporary pacemaker to help with her symptoms. Will await further recommendations from Cardiology. Histology Assistant has been consulted. 40 minute spent critical care activities Due to a high probability of clinically significant, life threatening deterioration, the patient required my highest level of preparedness to intervene emergently and I personally spent this critical care time directly and personally managing the patient. This critical care time included obtaining a history; examining the patient; pulse oximetry; ordering and review of studies; arranging urgent treatment with development of a management plan; evaluation of patient's response to treatment; frequent reassessment; and discussions with other providers. It was exclusive of separately billable procedures and treating other patients and teaching time. Please see Assessment and Plan section and the rest of the note for further information on patient assessment and treatment. 09/23/2022 interval history: 82-year-old female presented emergency department with complaint of shortness of breath is found to have third-degree heart block, patient is seen by Cardiology patient remains clinically stable and recommended patient does not need temporary pacemaker however patient will have permanent pacemaker, today patient had permanent pacemaker placed, unfortunately patient is quite somnolent unable to provide any review of symptom, possibly discharge the patient tomorrow Subjective Date/time seen: 10/24/22 15:03 Interval history: Shortness of breath and weakness HPI-Narrative: 82-year-old female with a past medical history of bronchiectasis, essential hypertension and depression who presented to the ER with shortness of breath and generalized weakness.? The patient reports that she has been feeling overall weak for the last 4 days.? She did not feel well so was checking her vitals at home.? She knows that her blood pressure was running on the higher side.? When she arrived to the ER her blood pressures were in the 190s to 200 systolic.? Then just after midnight today she began having increased shortness of breath from baseline.? She always has some shortness of breath due to history of bronchiectasis per symptoms are well controlled by using albuterol nebulizer twice a day.? She has not been having any significant cough from baseline.? She denies any chest pain or palpitations.? She denies any lightheadedness or syncope.? She has not had any recent changes in her medications.? She has not had any nausea or vomiting.? She does have some chronic urinary frequency but no increased urgency or dysuria.? However on the day of presentation to the ER she had actually not had much urine
[2022-10-25] VITALS (10 sets, daily range): BP systolic 161–194; BP diastolic 57–96; PULSE 71–103; RESP 18–20; TEMP 36.3–36.8; O2SAT 96–100
[2022-10-25] MEDS: ACETAMINOPHEN 325 MG TABLET 650 MG PO ×2 (02:20→08:17)
[2022-10-25] MEDS: hydrALAZINE HCL 20 MG/ML VIAL 10 MG IV PUSH (02:29)
[2022-10-25] MEDS: ALBUTEROL SULFATE NEB 2.5 MG/3 ML INH INHALATION (07:47)
[2022-10-25] MEDS: ASPIRIN 81 MG ENTERIC TABLET PO (08:51)
[2022-10-25] MEDS: hydrALAZINE HCL 50 MG TABLET PO ×2 (08:51→12:05)
[2022-10-25 10:16] LABS: Hemoglobin 10.9 g/dL (12.0-15.0); Mean Corpuscular Hemoglobin 29.1 pg (26-34); Mean Platelet Volume 10.5 fl (7.4-10.4); Platelet Count Result 179 k/mm3 (150-375); Red Blood Count 3.75 M/mm3 (4.2-5.4); Red Cell Distribution Width 13.5 % (11.5-14.5); White Blood Count 5.7 K/mm3 (4.5-10.0)
[2022-10-25 10:24] LABS: Anion Gap 4 mmol/L (8-16); Blood Urea Nitrogen 17 mg/dL (7-17); Calcium 7.5 mg/dL (8.4-10.2); Carbon Dioxide 20 mmol/L (22-30); Chloride 103 mmol/L (98-107); Estimated Glomerular Filt Rate 60; Glucose 144 mg/dL (65-110); Potassium 3.5 mmol/L (3.4-5.0); Sodium 127 mmol/L (137-145)
--- NOTE | 2022-10-25 14:15 | PM.DS ---
DS: Admitting Diagnosis Discharge Date 10/25/2022 Admitting Diagnosis Shortness of breath and weakness DS: Discharge Diagnosis Discharge Diagnosis (1) Third degree heart block: Code(s): I44.2 - Atrioventricular block, complete Status: Acute (2) Uncontrolled hypertension: Code(s): I10 - Essential (primary) hypertension Status: Acute Plan Patient has new onset third-degree heart block likely causing her symptoms of profound weakness. The patient also has a concomitant elevated blood pressure I think this is compensatory to count about her profound bradycardia. Cardiology has been consulted. The patient does have an elevated creatinine. It is unclear if this is acute kidney injury due to hypoperfusion versus just developing chronic kidney disease as patient's prior labs were from 2018. Chest x-ray also does demonstrates of possible pulmonary edema versus some of her chronic changes from a bronchiectasis. Again likely due to heart failure due to her bradycardia. The patient is not requiring any supplemental oxygen. The patient has been admitted as he ICU and has external pacers in place. Patient is not on any medications that could cause bradycardia. Will order echocardiogram to further evaluate patient's cardiac structure and function. Cardiology has been consulted. Patient would provide benefit from a temporary pacemaker to help with her symptoms. Will await further recommendations from Cardiology. Videogame Tester has been consulted. 40 minute spent critical care activities Due to a high probability of clinically significant, life threatening deterioration, the patient required my highest level of preparedness to intervene emergently and I personally spent this critical care time directly and personally managing the patient. This critical care time included obtaining a history; examining the patient; pulse oximetry; ordering and review of studies; arranging urgent treatment with development of a management plan; evaluation of patient's response to treatment; frequent reassessment; and discussions with other providers. It was exclusive of separately billable procedures and treating other patients and teaching time. Please see Assessment and Plan section and the rest of the note for further information on patient assessment and treatment. 09/23/2022 interval history: 82-year-old female presented emergency department with complaint of shortness of breath is found to have third-degree heart block, patient is seen by Cardiology patient remains clinically stable and recommended patient does not need temporary pacemaker however patient will have permanent pacemaker, today patient had permanent pacemaker placed, unfortunately patient is quite somnolent unable to provide any review of symptom, possibly discharge the patient tomorrow DS: Summary Hospital Course Reason for hospitalization: Shortness of breath and weakness Narrative: 82-year-old female with a past medical history of bronchiectasis, essential hypertension and depression who presented to the ER with shortness of breath and generalized weakness.? The patient reports that she has been feeling overall weak for the last 4 days.? She did not feel well so was checking her vitals at home.? She knows that her blood pressure was running on the higher side.? When she arrived to the ER her blood pressures were in the 190s to 200 systolic.? Then just after midnight today she began having increased shortness of breath from baseline.? She always has some shortness of breath due to history of bronchiectasis per symptoms are well controlled by using albuterol nebulizer twice a day.? She has not been having any significant cough from baseline.? She denies any chest pain or palpitations.? She denies any lightheadedness or syncope.? She has not had any recent changes in her medications.? She has not had any nausea or vomiting.? She does have some chronic urinary frequency but no increased
== END 2022-10-25 14:45 | disposition home or self-care (01) | DRG 229 ==
LOC: ANHED 03:09 → ANHICU 03:29
PROVIDERS: Internal Medicine; Specialist; Admitting Provider Internal Medicine; Emergency Provider Emergency Medicine; Visit Provider Family Medicine
PROC: 02HK3NZ Insertion of Intracardiac Pacemaker into Right Ventricle, Percutaneous Approach (ICD-10-PCS; CPT 33274; principal; 2022-10-24 08:15)
DX: I44.2 Atrioventricular block, complete (principal); I10 Essential (primary) hypertension; J47.9 Bronchiectasis, uncomplicated; Z88.1 Allergy status to other antibiotic agents; Z66 Do not resuscitate; Z79.82 Long term (current) use of aspirin; Z79.51 Long term (current) use of inhaled steroids; Z79.899 Other long term (current) drug therapy
CPT/HCPCS: 33274; 36415; 71045; 71046; 80048; 80053; 81001; 83605; 83735; 83880; 84100; 84484; 85025; 85027; 85610; 85730; 93005; 93306; 94640; 99285; A9270; C1769; C1786; C1894; J0360; J1644; J2250; J3010; J7030; J7040

== ENCOUNTER 2023-03-27 21:46 | Emergency (ER) | payer MEDICARE, BC, SELFPAY ==
[2023-03-27] VITALS (10 sets, daily range): BP systolic 186–207; BP diastolic 88–91; PULSE 67–79; RESP 12–17; TEMP 36.3; O2SAT 98–100
--- NOTE | ~2023-03-27 | XR_ITS ---
EXAMINATION: XR chest 2V DATE: 03/27/2023 22:32 INDICATION: Shortness of breath with body aches, ear pain and jaw pain. TECHNIQUE: frontal and lateral views of the chest were obtained. COMPARISON: Chest radiograph dated 10/25/2022 FINDINGS: New patchy airspace opacities in the posterior right midlung zone which is concerning for pneumonia. No pulmonary edema, pleural effusion or pneumothorax. A few unchanged small bilateral calcified pulmo nary nodules consistent with old granulomatous disease. Arch size is normal. Likely intraventricular leadless cardiac pacemaker. Mild S-shaped curvature of the thoracic and lumbar spine with moderate th oracic and severe lumbar spondylosis. IMPRESSION: 1. Airspace opacity posterior right midlung zone concerning for pneumonia. Reviewed, dictated and finalized at location A. OR [employer]
--- NOTE | 2023-03-27 21:54 | ECG_ITS ---
Measurements Intervals [place] Rate: 75 P: SD: 0 QRS: 57 QRSD: 137 T: 56 QT: 420 QTc: 471 Interpretive Statements ATRIAL SENSE- ELECTRONIC VENTRICULAR PACEMAKER FREQUENT ATRIAL PREMATURE COMPLEXES NO FURTHER INTERPRETATION IS POSSIBLE ABNORMAL ECG COMPARED TO ECG 10/24/2022 11:22:07 ATRIAL PREMATURE COMPLEXES NOW PRESENT Electronically Signed On 03-28-2023 6:15:31 SAUSAGE MAKER by Rodolfo Holbrook D.O.
[2023-03-27 22:15] LABS: Basophils Percent Auto 0.8 % (0.2-1.2); Eosinophils Percent Auto 0.6 % (0-4.4); Hematocrit 34.3 % (37.0-47.0); Hemoglobin 11.1 g/dL (12.0-15.0); Immature Granulocyte Absolute 0.02 K/mm3 (0.00-0.031); Immature Granulocyte Percent A 0.4 % (0-0.5); Lymphocytes Absolute Auto 0.85 K/mm3 (0.9-3.2); Lymphocytes Percent Auto 16.2 % (18.3-44.2); Mean Corpuscular HGB Conc 32.4 g/dl (32-36); Mean Corpuscular Hemoglobin 26.8 pg (26-34); Mean Corpuscular Volume 82.9 fl (80-100); Mean Platelet Volume 10.1 fl (7.4-10.4); Monocytes Absolute Auto 0.6 K/mm3 (0.1-0.6); Neutrophils Absolute Auto 3.7 K/mm3 (1.3-6.7); Platelet Count Result 306 k/mm3 (150-375); Red Blood Count 4.14 M/mm3 (4.2-5.4); Red Cell Distribution Width 14.1 % (11.5-14.5); White Blood Count 5.3 K/mm3 (4.5-10.0)
[2023-03-27 22:19] LABS: Alanine Aminotransferase 19 U/L (6-35); Albumin Level 3.9 g/dL (3.5-5.1); Alkaline Phosphatase 113 U/L (38-126); Anion Gap 10 mmol/L (8-16); Aspartate Amino Transferase 29 U/L (14-36); Bilirubin,Total 0.5 mg/dL (0.2-1.3); Blood Urea Nitrogen 14 mg/dL (7-17); Calcium 9.1 mg/dL (8.4-10.2); Carbon Dioxide 21 mmol/L (22-30); Chloride 95 mmol/L (98-107); Estimated Glomerular Filt Rate > 60; Glucose 118 mg/dL (65-110); Potassium 4.1 mmol/L (3.4-5.0); Sodium 126 mmol/L (137-145)
[2023-03-27 22:46] LABS: Influenza A QL RT-PCR Negative (Negative); Influenza B QL RT-PCR Negative (Negative); SARS-CoV-2 RNA PCR Negative (Negative)
[2023-03-27] MEDS: KETOROLAC 15 MG/ML VIAL (*BKC) IV PUSH (22:56)
[2023-03-27] MEDS: ONDANSETRON INJ 4 MG/2 ML VIAL IV PUSH (22:56)
--- NOTE | 2023-03-27 23:01 | ED.GENADULT ---
HPI - General Adult General Chief complaint: Recheck/Abnormal Lab/Rx Stated complaint: Body and ear hurts, HTN Time Seen by Provider: 03/27/23 22:19 History of Present Illness HPI narrative: Patient brought to the emergency department by family. She has been generally sick. Describing body aches and fatigue. Denies cough and chest pain. She has been feeling short of breath today. Denies sick contacts. Denies fevers and chills. She is accompanied by her family. Related Data Home Medications Medication Instructions Recorded Confirmed aspirin 81 mg tablet,delayed 81 mg PO DAILY 03/18/19 10/23/22 release (Aspir-) hydralazine 25 mg tablet 50 mg PO TID 03/18/19 10/23/22 albuterol sulfate 2.5 mg/3 mL 2.5 mg inhalation BID 10/23/22 10/23/22 (0.083 %) solution for nebulization Allergies Allergy/AdvReac Type Severity Reaction Status Date / Time cefuroxime Allergy Mild Unknown Verified 10/23/22 01:16 amoxicillin Allergy Unknown Other Verified 10/23/22 01:16 cefdinir Allergy Unknown Other Verified 10/23/22 01:16 levofloxacin Allergy Unknown Other Verified 10/23/22 01:16 AMOXICILLIN TRIHYDRATE Allergy Unknown ?ITCHING Uncoded 10/23/22 01:16 FEET, ACHY BONES POTASSIUM CLAVULANATE Allergy Unknown ?ITCHING Uncoded 10/23/22 01:16 FEET, ACHY BONES Review of Systems Review of Systems: Review of systems negative except what is documented in the HPI [facility] Past Medical History Medical History (Updated 03/28/23 @ 01:49 by Netta Jones MD) Anxiety and depression Bronchiectasis with acute exacerbation Essential hypertension H/O: stroke Small stroke about 2002; full recovery Hyponatremia Moderate episode of recurrent major depressive disorder Neuropathy SIADH (syndrome of inappropriate ADH production) TIA (transient ischemic attack) Surgical History Surgical History (Updated 10/23/22 @ 06:37 by Claire Umana DO) History of lumpectomy of left breast Benign pathology History of myringotomy History of sinus surgery Status post cataract extraction of both eyes with insertion of intraocular lens Family History Family History (Updated 10/23/22 @ 06:39 by Claire Umana DO) Father Lung cancer Mother Blindness Sibling Malignant neoplasm of prostate Social History Social History (Updated 10/23/22 @ 09:25 by Vonda Ritter MD) Social History: , has at least one child (daughter) Code status: DNR/DNI (suspended during hospitalization 10/23/2022) 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 Her daughter is at bedside. 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 Spiritual care concerns: No Exam Narrative: GENERAL: well-nourished, and in no acute distress. Ill-appearing, fatigue HEAD: Normocephalic, atraumatic. EYES: PERRLA and EOMI. ENT: Nares clear, no rhinorrhea or epistaxis. Mucous membranes moist. NECK: Supple. CHEST: Clear to auscultation. No respiratory distress. HEART: Regular rate and rhythm. ABDOMEN: Soft, nontender, nondistended. EXTREMITIES: Normal range of motion. No edema. SKIN: Warm, dry, no rash. NEURO: No focal deficits. Alert and oriented x3. PSYCH: Normal mood and affect. Course Course Emergency Course: Concern for COVID or influenza. Labs pending. Vital signs stable Vital Signs Vital signs: Vital Signs Temperature 36.3 C L 03/27/23 21:51 Pulse Rat
[2023-03-27 23:24] LABS: Troponin I < 0.012 ng/mL (0.000-0.034)
[2023-03-27 23:27] LABS: Procalcitonin 0.1 ng/mL
[2023-03-27] MEDS: hydrALAZINE HCL 20 MG/ML VIAL 10 MG IV PUSH (23:58)
[2023-03-28] VITALS (10 sets, daily range): BP systolic 147–187; BP diastolic 86–92; PULSE 69–73; RESP 13–18; O2SAT 97–98
[2023-03-28] MEDS: HYDROcodone/acetaminophen (*CRX) 5-325 MG TABLET 1 TAB PO (00:01)
[2023-03-28 01:20] LABS: Appearance Urine Cloudy (Clear); Bacteria Urine None Seen /hpf; Bilirubin Urine Negative (Negative); Blood Urine Negative (Negative); Color Urine Yellow (Yellow); Glucose Urine UA Negative (Negative); Ketones Urine Negative (Negative); Leukocyte Esterase Ur Negative LEU/UL (Negative); Nitrate Urine Negative (Negative); Non Pathogenic Casts 0-2; Protein Urine 2+ mg/dL (Negative); RBC Urine 0-2 /hpf (0-2); Specific Grav Ur 1.019 (1.001-1.035); Squamous Epithelial Cell Urine None seen /hpf (Few); Urobilinogen Urine 0.2 mg/dL (<2.0); WBC Urine 0-5 /hpf
[2023-03-28 01:26] LABS: Add Urine Microscopic? YES
[2023-03-28 01:37] LABS: Troponin I < 0.012 ng/mL (0.000-0.034)
--- NOTE | 2023-03-28 01:51 | PC.NURSE ---
At 0135 patient's blood pressure was 147/90. Notified EDP Dr. Jones who advised not to give second dose of hydralazine 10mg.
== END 2023-03-28 02:17 | disposition home or self-care (01) ==
PROVIDERS: Emergency Provider Emergency Medicine
DX: R53.83 Other fatigue (principal); R52 Pain, unspecified; I10 Essential (primary) hypertension; Z95.0 Presence of cardiac pacemaker; Z20.822 Contact with and (suspected) exposure to COVID-19; Z86.73 Personal history of transient ischemic attack (TIA), and cerebral infarction without residual deficits; G62.9 Polyneuropathy, unspecified; Z98.42 Cataract extraction status, left eye; Z98.41 Cataract extraction status, right eye; Z96.1 Presence of intraocular lens; Z66 Do not resuscitate; Z79.82 Long term (current) use of aspirin; I49.1 Atrial premature depolarization; R91.8 Other nonspecific abnormal finding of lung field
CPT/HCPCS: 36415; 71046; 80053; 81001; 84145; 84484; 85025; 87636; 93005; 96374; 96375; 99284; A9270; J0360; J1885; J2405

== ENCOUNTER 2023-11-06 09:50 | Outpatient (CLI) | payer MEDICARE, BC, SELFPAY | END 2023-11-06 09:51 | disposition home or self-care (01) | PROVIDERS: PCP Internal Medicine; Visit Provider Internal Medicine | DX: H90.3 Sensorineural hearing loss, bilateral (principal) | CPT/HCPCS: 92557; 92567 ==

== ENCOUNTER 2024-03-07 10:32 | Outpatient (CLI) | payer MEDICARE, BC, SELFPAY ==
--- NOTE | ~2024-03-07 | CT_ITS ---
CLINICAL INDICATION: Unintentional weight loss COMPARISON: Reference is made to a CT examination of the chest dated 02/06/2017 TECHNIQUE: An unenhanced CT of the abdomen and pelvis was performed utilizing multislice spiral techn ique reconstructed at 5 mm slice thickness. Coronal and sagittal reconstructions were performed. is CT examination was performed utilizing dose reduction techniques. DLP: 146 mGy-cm FINDINGS/OBSERVATIONS: Visualized lower thorax:Soft tissue attenuation pleural-based nodule within the right lower lobe luke uring 10 x 16 x 28 mm (anterior to posterior x medial to lateral x cranial to caudal dimension). This abnormality was not present on the 2017 examination. Adjacent focal expansile lesions involving the posterior margin of the right 10th and 11th ribs. Redemonstration of diffuse tree-in-bud pattern of opacification bilaterally, minimally increased from 2017. The heart is of normal size, without pericardial effusion. Small hiatal hernia is present. Liver: The liver is not enlarged and demonstrates diffuse fatty infiltration. Punctate calcifications within segments 5 and 6 of the liver, suggesting prior granulomatous disease. Gallbladder and biliary system: The gallbladder is only minimally distended, with a single calcified stone Pancreas: Limited evaluation without intravenous contrast. Spleen: The spleen is not enlarged and demonstrates homogeneous attenuation. Punctate calcifications are also noted, suggesting prior granulomatous disease. Kidneys: Long-standing hydronephrosis of the left kidney with diminished parenchyma and poor visualiz ation of the left ureter. The right kidney and collecting system are unremarkable. Adrenal glands: Unremarkable Gastrointestinal tract: The stomach is fluid-filled and significantly distended, extending into the p lake no additional findings to suggest gastric outlet obstruction. Multiple loops of fluid-filled small bowel are identified with fecal stasis in the nondilated distal colon. Appendix:The appendix is of normal caliber (axial series, image 51). Vasculature: Densely calcified atherosclerotic disease. Lymph nodes: Limited evaluation without intravenous contrast and without a significant amount of body fat. Pelvic structures: Calcifications within the uterus which is atrophic, not uncommon for a patient of this age. The bladder is distended, and otherwise unremarkable. Body wall and musculoskeletal: Significant degenerative disease is identified within the lower thorac ic and lumbosacral spines, with osteophyte formation, disc space narrowing, endplate changes and vacu um phenomena. Dextroscoliotic curvature of the lumbosacral spine is also noted. IMPRESSION: 2.8 cm pleural-based mass within the right lower lobe with expansion of the adjacent ribs, as detaile d above. Tissue sampling, versus PET/CT is recommended. Of note, this would be amenable to percutaneous biopsy. Long-standing hydronephrosis of the left kidney, without adequate visualization of the left ureter cordova ggesting ureteropelvic obstruction. Given the lack of intra-abdominal fat, contrast enhanced imaging (if the patient is clinically able) is suggested for further evaluation. Reviewed, dictated and finalized at location A. IMPRESSION: 2.8 cm pleural-based mass within the right lower lobe with expansion of the adj acent ribs, as detailed above. Tissue sampling, versus PET/CT is recommended. Of note, this would be amenable to percutaneous biopsy. Long-standing hydronephrosis of the left kidney, without adequate visualization of the left ureter suggesting ureteropelvic obstruction. Given the lack of intra-abdominal fat, contrast enhanced imaging (if the patien t is clinically able) is suggested for further evaluation.
== END 2024-03-07 10:33 | disposition home or self-care (01) ==
LOC: MICIMG 10:34
PROVIDERS: PCP Internal Medicine; Visit Provider Internal Medicine
DX: R63.4 Abnormal weight loss (principal); R91.8 Other nonspecific abnormal finding of lung field
CPT/HCPCS: 74176